=== PATIENT | female | born 1940 | race Caucasian/White ===

== ENCOUNTER 2020-06-21 15:17 | Emergency (ER) | payer BC ==
--- NOTE | 2020-06-21 15:34 | PDOC ---
History of Present Illness - General Chief Complaint: Pain Stated Complaint: ABD PAIN Time Seen by Provider: 06/21/20 15:34 Past History - Medical History Allergies/Adverse Reactions: Allergies Allergy/AdvReac Type Severity Reaction Status Date / Time No Known Allergies Allergy Verified 06/21/20 18:20 Home Medications: Ambulatory Orders Ciprofloxacin [Cipro (Restricted To Id)] 500 mg PO Q12H #28 tablet 06/21/20 metroNIDAZOLE [Flagyl -] 500 mg PO TID 14 Days #42 tablet 06/21/20 - Surgical History Appendectomy: Yes Cholecystectomy: Yes - Immunization History Immunization Up to Date: Yes - Psycho-Social/Smoking History Smoking History: Never smoked ED Treatment Course - LABORATORY CBC & Chemistry Diagram: 06/21/20 16:40 06/21/20 16:40 Medical Decision Making - Medical Decision Making 06/21/20 15:56 HPI: 80yo F hx mild dementia on keppra and donepezil, s/p appendectomy (ruptured appendix in 1950s), s/p hysterectomy and b/l oophorectomy, presents from home c/o 1.5 wks intermittent nonradiating LLQ/L pelvic pain "gas" type no triggers and nothing makes better and looser stools. Pt had constipation x4wks until 1.5wks ago. LBM today, passing gas. Went to GI Dr Vuong yesterday and started on simethicone without improvement. Also scheduled for CLP later this month; last CLP 5 years ago had 3 polyps removed. Denies N/V, F/C, urinary sx, flank pain, vaginal sx, blood in stool. PCP - [facility] - [facility] ROS: Constitutional: Negative for chills, fever, fatigue, diaphoresis. HENT: Negative for sore throat, rhinorrhea, congestion. Eyes: Negative for visual disturbance. Respiratory: Negative for shortness of breath, cough, and wheezing. Cardiovascular: Negative for chest pain, palpitations, and leg swelling. Gastrointestinal: Positive for abdominal pain, constipation, diarrhea. Negative for blood in stool, nausea, and vomiting. Genitourinary: Negative for dysuria, flank pain, and hematuria. Musculoskeletal: Negative for myalgias, back pain, and neck pain. Skin: Negative for rash. Neurological: Negative for light-headedness, dizziness, vertigo, syncope, weakness, numbness and headaches. Psychiatric/Behavioral: Negative for behavioral problems and confusion. PE: Gen: Alert, NAD, comfortable-appearing. HEENT: PERRL, EOMI, MMM, NCAT. No conjunctival pallor. Sclera are non-icteric CV: Regular rate and rhythm. No murmurs, rubs, or gallops. PULM: No resp distress. CTAB, no wheezes, rales, or rhonchi. ABD: soft, TTP L pelvic/suprapubic, ND, no rebound tenderness or guarding, no CVA tenderness. BACK: No TTP of c/t/l-spine. No step-offs or deformities. MSK: No bony deformities. 2+ pulses in all extremities. NEURO: AAOx3. PERRL. No gross CN deficits. Strength and sensation grossly intact throughout. EXTREMITIES: No cyanosis. No clubbing. No edema. No calf tenderness. PSYCH: Normal mood and thought pattern. SKIN: Warm and dry. Normal capillary refill. No rashes. No jaundice. MDM: 80yo F hx mild dementia on keppra and donepezil, s/p appendectomy (ruptured appendix in 1950s), s/p hysterectomy and b/l oophorectomy, presents from home c/o 1.5 wks intermittent nonradiating LLQ/L pelvic pain "gas" type no triggers and nothing makes better and looser stools. Hemodynamically stable, afebrile, TTP L pelvic/suprapubic. Ddx: UTI, complete/partial SBO, diverticulitis, colitis, viral syndrome, ACS/KS, infection, metabolic derangement, anemia. Very low concern for pelvic pathology due to lack of vaginal bleeding or sx and hx of hysterectomy/b/l oophorectomy. -EKG: NSR, 64bpm, normal axis, normal intervals, no e/o acute ischemia -CBC,CMP,Cardiac profile,Lipase,Lact,UA/UC -CTAP -Dispo: pending w/u and reassessment 06/21/20 18:07 Labs reviewed. UA + for possible UTI, but contaminated sample 06/21/20 18:45 CTAP reviewed: Uncomplicated diverticulitis -Cipro -Flagyl -Tylenol -UC f/u call Will discharge home with PCP f/u. Return precautions given. Pt understands all discharge instructions and all questions were answered. Discharge - Discharge Information Problems reviewed: Yes Clinical Impression/Diagnosis: UTI (urinary tract infection), Diverticulitis Condition: Improved Disposition: HOME - Admission No - Additional Discharge Information Prescriptions: Ciprofloxacin [Cipro (Restricted To Id)] 500 mg PO Q12H #28 tablet metroNIDAZOLE [Flagyl -] 500 mg PO TID 14 Days #42 tablet - Follow up/Referral - Patient Discharge Instructions Patient Printed Discharge Instructions: DI for Diverticulitis, DI for Urinary Tract Infection (UTI) Additional Instructions: You have been seen in the Emergency Department for your abdominal pain and diarrhea. Your labs, exam, and CT scan show that you have diverticulitis. We have sent antibiotics to your pharmacy - take as prescribed. Your urine also shows a possible infection. You will receive a call in 2-3 days with your urine culture results; if positive, there is a chance the diverticulitis antibiotics don't cover the UTI and you may need to take an additional antibiotic. If you experience pain, you can take Tylenol or Ibuprofen as directed on the medication bottle, but do not exceed 3g of Ibuprofen or 4g of Tylenol a day. Follow-up with your primary care doctor within 1 week. Return to the Emergency Department immediately if you experience worsening pain, vomiting, blood in your stool, or any other new or worsening symptom. 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 Diffuse hepatic steatosis. Status post cholecystectomy. Mild common bile duct dilatation is seen with a 0.8cm diameter which could be on a postsurgical basis. Correlate clinically/laboratory. Minimal to mild intrahepatic biliary tract dilatation is noted centrally. - Post Discharge Activity
[2020-06-21 15:49] VITALS: BP 141/67; PULSE 62; TEMP 98.4; BMI 21.8
[2020-06-21 16:57] LABS: BASO % 0.4 % (0-2.0); EOS % 1.3 % (0-4.5); HEMOGLOBIN 11.8 GM/dL (10.7-15.3); LYMPH % 17.9 % (8-40); MCH 29.9 pg (25.7-33.7); MCHC 33.6 g/dl (32.0-36.0); MEAN CELL VOLUME 88.8 fl (80-96); MEAN PLT VOLUME 8.1 fl (7.5-11.1); MONO % 9.9 % (3.8-10.2); NEUT % 70.5 % (42.8-82.8); PLATELET COUNT 375 K/MM3 (134-434); RBC 3.94 M/mm3 (3.60-5.2); RDW 13.4 % (11.6-15.6); WHITE BLOOD COUNT 10.2 K/mm3 (4.0-10.0)
[2020-06-21 17:29] LABS: ALBUMIN 2.7 g/dl (3.4-5.0); ALK PHOS 138 U/L (45-117); ANION GAP 6 MMOL/L (8-16); BILIRUBIN,TOTAL 0.3 mg/dL (0.2-1); BLOOD UREA NITROGEN 10.5 mg/dL (7-18); CHLORIDE 103 mmol/L (98-107); CO2 32 mmol/L (21-32); CREATININE 0.5 mg/dL (0.55-1.3); GLUCOSE,RANDOM 103 mg/dL (74-106); LIPASE 141 U/L (73-393); POTASSIUM 3.6 mmol/L (3.5-5.1); SGOT/AST 11 U/L (15-37); SGPT/ALT 21 U/L (13-61); SODIUM 141 mmol/L (136-145); TOT PROT 6.8 g/dl (6.4-8.2)
--- NOTE | 2020-06-21 17:31 | PDOC ---
Attending Attestation - Resident Resident Name: Sylvia Auguste - HPI HPI: 06/21/20 17:54 Patient presents to the Ed complaining of a two day history of LLQ pain, without nausea, vomiting or diarrhea. Denies fever. STates that she is tolerating Po with her normal appetite. Denies dysuria. - Physicial Exam PE: 06/21/20 17:57 Agree with resident exam. PAteint is alert and oriented x 3 and in no acute distress. Cv: rrr soft systolic murmur. Pulm: cta b/l abdomen soft, non distended, point tenderness in the LLQ. - Medical Decision Making 06/21/20 18:00 Pt presents to the ED complaining of lower abdominal pain without associated symptoms. Concern for diverticulitis, other intestinal pathology, UTI. Will check labs, UA, CT abdomen. Discharge - Discharge Information Problems reviewed: Yes Clinical Impression/Diagnosis: UTI (urinary tract infection), Diverticulitis Condition: Improved Disposition: HOME - Additional Discharge Information Prescriptions: Ciprofloxacin [Cipro (Restricted To Id)] 500 mg PO Q12H #28 tablet metroNIDAZOLE [Flagyl -] 500 mg PO TID 14 Days #42 tablet - Follow up/Referral - Patient Discharge Instructions Patient Printed Discharge Instructions: DI for Diverticulitis, DI for Urinary Tract Infection (UTI) Additional Instructions: You have been seen in the Emergency Department for your abdominal pain and diarrhea. Your labs, exam, and CT scan show that you have diverticulitis. We have sent antibiotics to your pharmacy - take as prescribed. Your urine also shows a possible infection. You will receive a call in 2-3 days with your urine culture results; if positive, there is a chance the diverticulitis antibiotics don't cover the UTI and you may need to take an additional antibiotic. If you experience pain, you can take Tylenol or Ibuprofen as directed on the medication bottle, but do not exceed 3g of Ibuprofen or 4g of Tylenol a day. Follow-up with your primary care doctor within 1 week. Return to the Emergency Department immediately if you experience worsening pain, vomiting, blood in your stool, or any other new or worsening symptom. 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 Diffuse hepatic steatosis. Status post cholecystectomy. Mild common bile duct dilatation is seen with a 0.8cm diameter which could be on a postsurgical basis. Correlate clinically/laboratory. Minimal to mild intrahepatic biliary tract dilatation is noted centrally. - Post Discharge Activity
[2020-06-21 17:54] LABS: EPI CELLS >36 /uL (0-25.1); HYALINE CASTS 4 /uL (0-3.1); PH,URINE 6.5 (5.0-8.0); URINE APPEARANCE CLOUDY; URINE BACTERIA 3341 /uL (0-1359); URINE BILIRUBIN NEGATIVE (NEGATIVE); URINE COLOR YELLOW; URINE GLUCOSE (UA) NEGATIVE (NEGATIVE); URINE KETONE NEGATIVE (NEGATIVE); URINE LEUK ESTERASE 2+ (NEGATIVE); URINE NITRITE NEGATIVE (NEGATIVE); URINE PROTEIN NEGATIVE (NEGATIVE); URINE RBC 8 /uL (0-23.9); URINE UROBILINOGEN 0.2 mg/dL (0.2-1.0); URINE WBC 199 /uL (0-25.8)
[2020-06-21] MEDS ORDERED: metroNIDAZOLE 250 MG TABLET PO ONE (18:44)
[2020-06-21] MEDS ORDERED: CIPROFLOXACIN 500 MG TABLET (RESTRICTED TO ID) PO ONE (18:44)
[2020-06-21] MEDS ORDERED: ACETAMINOPHEN 500 MG TABLET (FP) PO ONE (18:51)
[2020-06-21] MEDS ORDERED: ACETAMINOPHEN 325 MG TABLET (FP) ONE (18:54)
[2020-06-21] MEDS ORDERED: metroNIDAZOLE 250 MG TABLET ONE (18:54)
--- NOTE | 2020-06-23 21:35 | EKG ---
Test Reason : Blood Pressure : / mmHG Vent. Rate : 064 BPM Atrial Rate : 064 BPM P-R Int : 164 ms QRS Dur : 092 ms QT Int : 448 ms P-R-T Axes : 013 -18 043 degrees QTc Int : 462 ms NORMAL SINUS RHYTHM MINIMAL VOLTAGE CRITERIA FOR LVH, MAY BE NORMAL VARIANT BORDERLINE ECG WHEN COMPARED WITH ECG OF 09-NOV-2003 15:16, QT HAS LENGTHENED Confirmed by SJ FELIZ, RASHEL ([id number]) on 06/23/2020 9:35:04 PM Referred By: Confirmed By:RASHEL GUSTAFSON MD
== END 2020-06-21 19:11 | disposition home or self-care (01) ==
LOC: JER 15:17
DX: N39.0 Urinary tract infection, site not specified (principal); K57.92 Diverticulitis of intestine, part unspecified, without perforation or abscess without bleeding
CPT/HCPCS: 36415; 74177-TC; 80053; 81003; 82550; 83605; 83690; 84484; 85025; 87086; 93005; 93010; 99285-25